=== PATIENT | female | born 1955 | race Caucasian/White ===

== ENCOUNTER 2017-10-20 17:10 | Emergency (ER) | payer BC, SELFPAY ==
[2017-10-20 17:21] VITALS: BP 116/70; PULSE 90; RESP 18; TEMP 36.6; O2SAT 95
--- NOTE | 2017-10-20 17:23 | ED.ABDPAIN ---
HPI - Abdominal Pain <MICHELLE Gallegos - Last Filed: 10/20/17 22:43> General Chief Complaint: Abdominal Pain Stated Complaint: ACUTE PANCREATITIS Time Seen by Provider: 10/20/17 17:22 Source: patient Mode of arrival: ambulatory Limitations: no limitations History of Present Illness HPI narrative: 61-year-old female here for complaint of having Epigastric pain and right upper quadrant pain that started earlier this morning. She was seen at [facility] emergency room today at [place] prior to coming here and was worked up. CT was obtained and was negative for any acute findings. Lipase was obtained and was almost 4k. AST and ALT was also obtained was unremarkable. She was sent here POV for further evaluation as they did not have ultrasound. She reports not having anything to eat since early this morning. she has some nausea however no vomitin g. She denies any fevers no trauma to the abdomen. Related Data Home Medications Medication Instructions Recorded Confirmed pregabalin [Lyrica] 50 mg PO TID 10/20/17 10/20/17 sertraline [Zoloft] 50 mg PO DAILY 10/20/17 10/20/17 Allergies Allergy/AdvReac Type Severity Reaction Status Date / Time shellfish derived Allergy Verified 10/20/17 17:19 Sulfa (Sulfonamide Allergy Verified 10/20/17 17:19 Antibiotics) Review of Systems <MICHELLE Gallegos - Last Filed: 10/20/17 22:43> Constitutional Denies chills, Denies fever(s), Denies lethargy and Denies weakness Eyes Denies change in vision, Denies eye discharge, Denies irritation and Denies loss of vision ENT Ears, Nose, Mouth, and Throat: Denies change in voice, Denies neck pain and Denies sore throat Cardiovascular Denies chest pain, Denies irregular heart rhythm, Denies lightheadedness, Denies palpitations, Denies dyspnea, Denies dyspnea on exertion and Denies orthopnea Respiratory Denies cough, Denies dyspnea, Denies dyspnea on exertion and Denies wheezing Gastrointestinal Gastrointestinal: Reports abdominal pain and Reports nausea Genitourinary Denies hematuria, Denies flank pain, Denies urinary incontinence and Denies urinary urgency Musculoskeletal Denies neck pain Integumentary/Breasts Denies pruritus, Denies erythema, Denies rash and Denies wounds Neurologic Denies confusion, Denies loss of vision and Denies weakness Psychiatric Denies anxiety, Denies confusion, Denies depression, Denies homicidal ideation and Denies suicidal ideation Endocrine Denies palpitations Hematologic/Lymphatic Denies easy bruising Allergic/Immunologic Denies wheezing Exam <MICHELLE Gallegos - Last Filed: 10/20/17 22:43> Initial Vital Signs Initial Vital Signs: Vital Signs Temperature 97.9 F 10/20/17 17:21 Pulse Rate 90 10/20/17 17:21 Respiratory Rate 18 10/20/17 17:21 Blood Pressure 116/70 10/20/17 17:21 Pulse Oximetry 95 10/20/17 17:21 Const General: cooperative and well developed Nutritional Appearance: well nourished Orientation: alert, awake, oriented x3 and not confused HENMT Mouth: oral mucosae normal and moist mucous membranes Eyes Conjunctivae: conjunctivae normal Sclera: sclerae normal Pupils: PERRL EOM: EOM intact bilaterally Resp Effort & Inspection: normal respiratory effort, able to speak in complete sentences, no respiratory distress and no use of accessory muscles Auscultation: clear to auscultation bilaterally, no rales, no rhonchi and no wheezes Cardio Rate: regular rate Rhythm: regular rhythm Heart Sounds: no click, no gallops, no murmurs and no rubs Pulses: normal peripheral pulses GI Inspection: non-distended Palpation: soft, no hepatosplenomegaly, No guarding, No pulsatile mass and tender (Tenderness to right upper quadrant and to epigastric area) Auscultation: normal bowel sounds Skin General: no rashes or lesions noted, No jaundice and No petechiae Neuro General: alert, oriented x3, gait normal and no focal motor deficits Speech: speech normal <Alicia Collazo DO - Last Filed: 10/21/17 00:31> Initial Vital Signs Initial Vital Signs: Vital Signs Temperature 97.9 F 10/20/17 17:21 Pulse Rate 90 10/20/17 17:21 Respiratory Rate 18 10/20/17 17:21 Blood Pressure 116/70 10/20/17 17:21 Pulse Oximetry 95 10/20/17 17:21 Course <MICHELLE Gallegos - Last Filed: 10/20/17 22:43> Orders Ordered: ED Orders 10/20/17 17:53 US abdomen complete Stat 10/20/17 20:10 Lipase Stat Discontinued Medications Hydromorphone HCl (Dilaudid) 1 mg IV NOW ONE Stop: 10/20/17 17:54 Last Admin: 10/20/17 17:55 Dose: 1 mg Hydromorphone HCl (Dilaudid) 1 mg IV NOW ONE Stop: 10/20/17 20:01 Last Admin: 10/20/17 20:10 Dose: 1 mg Hydromorphone HCl (Dilaudid) 1 mg IV NOW ONE Stop: 10/20/17 22:45 Last Admin: 10/20/17 22:52 Dose: 1 mg Sodium Chloride (Normal Saline 0.9%) 1,000 mls @ 150 mls/hr IV CONT ANY Last Infusion: 10/20/17 22:46 Dose: 0 mls/hr Admin: 10/20/17 17:55 Dose: 150 mls/hr Sodium Chloride (Normal Saline 0.9%) 1,000 mls @ 1,000 mls/hr IV BOLUS ONE Stop: 10/20/17 23:43 Last Infusion: 10/20/17 23:48 Dose: 0 mls/hr Admin: 10/20/17 22:52 Dose: 1,000 mls/hr Ondansetron HCl (Zofran) 4 mg IV NOW ONE Stop: 10/20/17 17:55 Last Admin: 10/20/17 17:56 Dose: 4 mg Vital Signs - 8 hr 10/20/17 17:21 10/20/17 18:51 10/20/17 19:49 Temperature 97.9 F 98.0 F 98.0 F Pulse Rate 90 92 H 92 H Respiratory Rate 18 16 16 Blood Pressure 116/70 116/70 Blood Pressure [Left Arm] 106/80 Pulse Oximetry 95 98 98 10/20/17 20:06 10/20/17 21:11 10/20/17 23:04 Temperature 98.9 F 98.0 F 97.8 F Pulse Rate 97 H 99 H 98 H Respiratory Rate 20 18 16 Blood Pressure Blood Pressure [Left Arm] 142/72 H 138/75 H 110/53 L Pulse Oximetry 99 93 95 <Alicia Collazo DO - Last Filed: 10/21/17 00:31> Orders Ordered: ED Orders 10/20/17 17:53 US abdomen complete Stat 10/20/17 20:10 Lipase Stat Discontinued Medications Hydromorphone HCl (Dilaudid) 1 mg IV NOW ONE Stop: 10/20/17 17:54 Last Admin: 10/20/17 17:55 Dose: 1 mg Hydromorphone HCl (Dilaudid) 1 mg IV NOW ONE Stop: 10/20/17 20:01 Last Admin: 10/20/17 20:10 Dose: 1 mg Hydromorphone HCl (Dilaudid) 1 mg IV NOW ONE Stop: 10/20/17 22:45 Last Admin: 10/20/17 22:52 Dose: 1 mg Sodium Chloride (Normal Saline 0.9%) 1,000 mls @ 150 mls/hr IV CONT ANY Last Infusion: 10/20/17 22:46 Dose: 0 mls/hr Admin: 10/20/17 17:55 Dose: 150 mls/hr Sodium Chloride (Normal Saline 0.9%) 1,000 mls @ 1,000 mls/hr IV BOLUS ONE Stop: 10/20/17 23:43 Last Infusion: 10/20/17 23:48 Dose: 0 mls/hr Admin: 10/20/17 22:52 Dose: 1,000 mls/hr Ondansetron HCl (Zofran) 4 mg IV NOW ONE Stop: 10/20/17 17:55 Last Admin: 10/20/17 17:56 Dose: 4 mg Consultations Consultation #1: Dr. Bradley, hospitalist at [place] has been updated patient's symptoms test results happily accepts patient. I will check and make sure DI is available for tomorrow. Vital Signs - 8 hr 10/20/17 17:21 10/20/17 18:51 10/20/17 19:49 Temperature 97.9 F 98.0 F 98.0 F Pulse Rate 90 92 H 92 H Respiratory Rate 18 16 16 Blood Pressure 116/70 116/70 Blood Pressure [Left Arm] 106/80 Pulse Oximetry 95 98 98 10/20/17 20:06 10/20/17 21:11 10/20/17 23:04 Temperature 98.9 F 98.0 F 97.8 F Pulse Rate 97 H 99 H 98 H Respiratory Rate 20 18 16 Blood Pressure Blood Pressure [Left Arm] 142/72 H 138/75 H 110/53 L Pulse Oximetry [address] [facility] - Abdominal Pain <William GregoryclsalinaMICHELLE - Last Filed: 10/20/17 22:43> Lab Data Lab Results 10/20/17 Range/Units 20:10 Lipase 8403 H (23-300) U/L Imaging Data US - abdomen: Radiologist's impression: PROCEDURE: US ABDOMEN COMPLETE INDICATIONS: Pain to epigastric/right upper quadrant TECHNIQUE: Real-time scanning was performed of the abdominal and retroperitoneal organs, with image documentation. COMPARISON: None. FINDINGS: Liver: Liver is normal in size and homogeneous in echotexture. Gallbladder: Demonstrates a 1 cm calculus within the gallbladder neck. Gallbladder wall is within normal limits. Biliary ducts: Intrahepatic bile ducts are non-dilated. Extrahepatic bile duct caliber measures 10 mm. Normal is 6-7 mm or less in diameter, or 10 mm or less post-cholecystectomy. Pancreas: Visualized portions of the pancreas are sonographically normal. Spleen: Spleen is normal in size and homogeneous in echotexture. Kidneys: Kidneys are normal in size and echotexture. Right kidney measures 10.9 cm long; left kidney measures 9.8 cm long. No hydronephrosis or nephrolithiasis. No solid masses. Aorta: Not seen Iliacs: Not seen IVC: Not seen Miscellaneous: No free abdominal fluid. IMPRESSION: 1. Impacted 10 mm calculus within the gallbladder neck. No evidence of gallbladder wall thickening. 2. Dilated common bile duct, which may indicate distal common bile duct obstruction. Recommend correlation with liver function tests. Dictated by: Sun Dunn M.D. on 10/20/2017 at 19:07 Approved by: Sun Dunn M.D. on 10/20/2017 at 19:[address] [facility] Narrative Medical decision making narrative: Ultrasound of the right upper quadrant was obtained and shows a gallstone into the neck of the gallbladder. Ultrasound also shows dilated common bile duct of about 10 mm. Discussed case with surgery Dr. Brown surgery recommend obtaining a lipase. Lipase was obtained and shows that her lipase increased to over 8k. He recommended transferring patient to another facility to obtain ERCP. Contacted [facility] and waiting for hospitalist to call back to accept patient. Due to change in shift patient is turned over to Dr. Collazo <Alicia Collazo DO - Last Filed: 10/21/17 00:31> Medical Records Attestation: I reviewed the patient's medical records. Lab Data Attestation: I reviewed the patient's lab results. WBC 10.3 hemoglobin 12.8, hematocrit 39.7, platelets 298, troponin less than 0.01, lactate 1.1, sodium 136, potassium 4.0, chloride 105, CO2 25, anion gap 6,, BUN 16, creatinine 0.6, total bilirubin 1.1, alk-phos 115, ALT 737, AST 1236 Lab Results 10/20/17 Range/Units 20:10 Lipase 8403 H (23-300) U/L MDM Narrative Medical decision making narrative: I have seen and evaluated patient minimal right upper quadrant pain after Dilaudid. As I have been discussing with midlevel provider. Labs are reviewed from other facility. I have spoken with Dr. Bradley, hospitalist at [place] was not a.m. patient's symptoms test results. Agrees and accepts for transfer I spoke with Dr. Pelayo, GI, also agrees with transfer. Discharge Plan Departure Patient Disposition: [facility] Clinical Impression: Choledocholithiasis, Pancreatitis Discharge Date/Time: 10/21/17 00:30 Interventions: ED Discharge Assessment Last Done: 10/21/17 00:29 Prescriptions: No Action sertraline [Zoloft] 50 mg Tablet 50 mg PO DAILY RF: 0 pregabalin [Lyrica] 50 mg Capsule 50 mg PO TID RF: 0 <Alicia Collazo DO - Last Filed: 10/21/17 00:31> Cosign ED Attending Cosignature Attestation: I was immediately available in the department for consultation. Documentation has been reviewed. I agree with assessment and plan.
--- NOTE | 2017-10-20 17:53 | DI.US.S_ITS ---
PROCEDURE: US ABDOMEN COMPLETE INDICATIONS: Pain to epigastric/right upper quadrant TECHNIQUE: Real-time scanning was performed of the abdominal and retroperitoneal organs, with image documentation. COMPARISON: None. FINDINGS: Liver: Liver is normal in size and homogeneous in echotexture. Gallbladder: Demonstrates a 1 cm calculus within the gallbladder neck. Gallbladder wall is within normal limits. Biliary ducts: Intrahepatic bile ducts are non-dilated. Extrahepatic bile duct caliber measures 10 mm. Normal is 6-7 mm or less in diameter, or 10 mm or less post-cholecystectomy. Pancreas: Visualized portions of the pancreas are sonographically normal. Spleen: Spleen is normal in size and homogeneous in echotexture. Kidneys: Kidneys are normal in size and echotexture. Right kidney measures 10.9 cm long; left kidney measures 9.8 cm long. No hydronephrosis or nephrolithiasis. No solid masses. Aorta: Not seen Iliacs: Not seen IVC: Not seen Miscellaneous: No free abdominal fluid. IMPRESSION: 1. Impacted 10 mm calculus within the gallbladder neck. No evidence of gallbladder wall thickening. 2. Dilated common bile duct, which may indicate distal common bile duct obstruction. Recommend correlation with liver function tests. Dictated by: Sun Dunn M.D. on 10/20/2017 at 19:07 Approved by: Sun Dunn M.D. on 10/20/2017 at 19:08
[2017-10-20] MEDS: SODIUM CHLORIDE 0.9% 1,000 ML 150 ML IV (17:55)
[2017-10-20] MEDS: HYDROMORPHONE 1 MG INJ IV ×2 (17:55→20:10)
[2017-10-20] MEDS: ONDANSETRON 4 MG/2 ML INJ IV (17:56)
[2017-10-20 18:51] VITALS: BP 106/80; PULSE 92; RESP 16; TEMP 36.7; O2SAT 98
[2017-10-20 19:49] VITALS: BP 116/70; PULSE 92; RESP 16; TEMP 36.7; O2SAT 98
[2017-10-20 20:06] VITALS: BP 142/72; PULSE 97; RESP 20; TEMP 37.2; O2SAT 99
[2017-10-20 20:47] LABS: Lipase 8403 U/L (23-300)
[2017-10-20 21:11] VITALS: BP 138/75; PULSE 99; RESP 18; TEMP 36.7; O2SAT 93
[2017-10-20] MEDS: SODIUM CHLORIDE 0.9% 1,000 ML 1000 ML IV (22:52)
[2017-10-20] MEDS: HYDROMORPHONE 2 MG INJ 1 MG IV (22:52)
[2017-10-20 23:04] VITALS: BP 110/53; PULSE 98; RESP 16; TEMP 36.6; O2SAT 95
== END 2017-10-21 00:30 | disposition short-term general hospital (02) ==
PROVIDERS: Nurse Practitioner Family; Emergency Provider Emergency Medicine
DX: K80.50 Calculus of bile duct without cholangitis or cholecystitis without obstruction (principal); K85.90 Acute pancreatitis without necrosis or infection, unspecified
CPT/HCPCS: 36415; 76700; 83690; 96361; 96374; 96375; 96376; 99283; 99284; J1170; J2405